=== PATIENT | male | born 1955 | race Caucasian/White ===

== ENCOUNTER 2017-12-14 09:32 | Emergency (ER) | payer SELFPAY ==
[~2017-12-14] VITALS: Ht 180.3 cm; Wt 77.0 kg
[2017-12-14] MEDS ORDERED: HYDROCODONE/ACETAMINOPHEN 5/325MG TABLET PO ONE (10:30)
[2017-12-14 10:50] VITALS: BP 109/67
== END 2017-12-14 10:34 | disposition home or self-care (01) ==
LOC: ER 10:03
DX: M25.551 Pain in right hip (principal); G89.29 Other chronic pain; Z87.81 Personal history of (healed) traumatic fracture; Z91.81 History of falling; Z96.641 Presence of right artificial hip joint; F17.210 Nicotine dependence, cigarettes, uncomplicated
CPT/HCPCS: 99283